=== PATIENT | male | born 1985 | race Caucasian/White ===

== ENCOUNTER 2023-10-10 19:16 | Emergency (ER) | payer BC ==
[~2023-10-10] VITALS: Ht 188 cm; Wt 90.7 kg
[2023-10-10] MEDS ORDERED: PHENYLEPHRINE HCL NASAL SPRAY 15 ML BOTTLE NS ONE (20:00)
[2023-10-10] MEDS ORDERED: TRANEXAMIC ACID 1,000 MG/10 ML VIAL NS ONE (20:00)
[2023-10-10] MEDS ORDERED: TRANEXAMIC ACID 1,000 MG/10 ML VIAL ONE (20:03)
[2023-10-10] MEDS ORDERED: OXYMETAZOLINE HCL NASAL SPRAY 30 ML BOTTLE NS ONE (20:09)
[2023-10-10] MEDS ORDERED: PHENYLEPHRINE 0.5% NASAL SPRAY 15 ML BOTTLE NS ONE ×2 (20:14→20:30)
[2023-10-10] MEDS ORDERED: ACETAMINOPHEN ES 500 MG TABLET ONE (21:16)
[2023-10-10] MEDS ORDERED: HYDR-4303 PO (21:29)
[2023-10-10] MEDS ORDERED: CEPH500C2 PO (21:29)
[2023-10-10] MEDS ORDERED: ACETAMINOPHEN ES 500 MG TABLET PO ONE (21:30)
[2023-10-10 21:35] VITALS: BP 132/82; TEMP 98; O2SAT 97
[2023-10-10] MEDS ORDERED: HYDR-4277 PO (21:59)
== END 2023-10-10 21:36 | disposition home or self-care (01) ==
LOC: ER 19:22
DX: R04.0 Epistaxis (principal)